=== PATIENT | male | born 1970 | race African-American/Black ===

== ENCOUNTER 2016-10-07 20:35 | Emergency (ER) | payer OTHER ==
[~2016-10-07] VITALS: Ht 182.9 cm; Wt 80.0 kg
[~2016-10-07 20:35] MED LIST: INDO25CA PO
[2016-10-07 20:39] VITALS: BP 138/83; PULSE 121; RESP 16; TEMP 98.3; O2SAT 98
[2016-10-07] MEDS ORDERED: CEPHALEXIN MONOHYDRATE 500 MG CAP PO ONE (20:45)
[2016-10-07] MEDS ORDERED: KETOROLAC TROMETHAMINE 60 MG/2 ML (IM) VIAL IM ONE (20:45)
[2016-10-07] MEDS ORDERED: SILVER SULFADIAZINE 1% CR 50 GM JAR TOPICAL ONE (20:45)
--- NOTE | 2016-10-07 20:53 | PD ---
Physical Exam Date Seen by Provider: Oct 07, 2016 Narrative Patient presents by [facility] with a burn to his left arm. Data Data Last Documented VS Vital Signs Date Time Temp Pulse Resp B/P Pulse Ox O2 Delivery O2 Flow Rate FiO2 10/07/16 20:42 122 16 98 Room Air 10/07/16 20:39 98.3 138/83 Orders Ketorolac Inj (Toradol Inj) (10/07/16 20:45) Cephalexin (Keflex) (10/07/16 20:45) Silver Sulfadia 1% Crm (50 Gm) (Silvaden (10/07/16 20:45) Wound Care (10/07/16 20:44) Splinting (10/07/16 ) MDM Supervised Visit with ERIC: Yes Narrative Course I, Dr. Lyons, have reviewed the advance practice practitioner's documentation and am in agreement, met with the patient face to face, made the diagnosis, and the medical decision making was done by me. *My assessment and Findings: The patient has some lacerations on the right hand but is able to move his right hand without difficulty. He has a strip of second -degree burn on the left arm near the elbow. It is not circumferential. Scripts Unable to Obtain Active Prescriptions or Reported Meds Keri Lyons MD Oct 07, 2016 20:53
--- NOTE | 2016-10-07 21:05 | PD ---
HPI Chief Complaint: Burn Time Seen by Provider: 20:48 Travel History International Travel<30 days: No Contact w/Intl Traveler<30days: No Traveled to known affect area: No History of Present Illness HPI 45-year-old Afro-[place]ipino male coming in via EMS status post burn to the left dorsal proximal forearm and elbow. Patient was frying some chicken, when the will spilled onto his left arm, the patient turned violently to the right and hit his right second and third knuckles on a glass table which shattered. Patient sustained a second-degree burn with loss of the superficial layers of the skin to below the pigmentation layer. Patient denies numbness, tingling, or other symptoms. Patient has full range of motion of the left arm and elbow at this time. Pain is described as a 4/10. Patient also has 2 abrasions to the right hand at the second and third knuckle with minimal bleeding noted. Patient states he is up-to-date on his tetanus as of one year ago, has no known drug allergies. He is a patient of the [place] [facility] Past Medical History Cardiovascular Problems: Yes (HTN) Diabetes: Yes Patient Takes Glucophage: Yes Diminished Hearing: No Tetanus Vaccination: < 5 Years Influenza Vaccination: No Past Surgical History Surgical History: No Previous Surgery Social History Alcohol Use: No Tobacco Use: Yes Substance Use: No Allergies-Medications (Allergen,Severity, Reaction): Coded Allergies: No Known Allergies (Unverified , 10/07/16) Reported Meds & Prescriptions Reported Meds & Active Scripts Active Active Prescriptions or Reported Medications Unobtainable Review of Systems Except as stated in HPI: all other systems reviewed are Neg General / Constitutional: No: Fever Eyes: No: Visual changes HENT: No: Headaches Cardiovascular: No: Chest Pain or Discomfort Respiratory: No: Shortness of Breath Gastrointestinal: No: Abdominal Pain Genitourinary: No: Dysuria Musculoskeletal: No: Pain Skin: No Rash Neurologic: No: Weakness Psychiatric: No: Depression Endocrine: No: Polydipsia Hematologic/Lymphatic: No: Easy Bruising Physical Exam Narrative GENERAL: Patient appears in mild distress SKIN: Warm and dry. Patient has a strip-like second-degree burn on the left dorsal forearm measuring 9 inches in length by approximately 3 inches and with with another inch surrounding of first-degree burn. Blisters have all been sloughed off. She also has some superficial abrasions to the right second and third knuckles with minimal bleeding noted. These do not appear to require sutures. HEAD: Atraumatic. Normocephalic. EYES: Pupils equal and round. No scleral icterus. No injection or drainage. ENT: No nasal bleeding or discharge. Mucous membranes pink and moist. NECK: Trachea midline. No JVD. CARDIOVASCULAR: Regular rate and rhythm. No murmurs gallops or rubs. RESPIRATORY: No accessory muscle use. Clear to auscultation. Breath sounds equal bilaterally. MUSCULOSKELETAL: Extremities without clubbing, cyanosis, or edema. No obvious deformities. Patient has full range of motion of all extremities without difficulty. Soakers Supervisor strength of the right hand is normal. No signs of foreign body. NEUROLOGICAL: Awake and alert. No obvious cranial nerve deficits. Motor grossly within normal limits. Five out of 5 muscle strength in the arms and legs. Normal speech. PSYCHIATRIC: Appropriate mood and affect; insight and judgment normal. Data Data Last Documented VS Vital Signs Date Time Temp Pulse Resp B/P Pulse Ox O2 Delivery O2 Flow Rate FiO2 10/07/16 20:42 122 16 98 Room Air 10/07/16 20:39 98.3 138/83 [facility] Medical Decision Making Medical Screen Exam Complete: Yes Emergency Medical Condition: Yes Differential Diagnosis Second-degree burn. First-degree burn. Abrasions. Narrative Course Patient is medically stable at time of exam. Patient is up-to-date on his tetanus. Patient is given 500 mg Keflex by mouth. Patient is given 60 mg Toradol IM. Bulky Burn dressing is applied to the left forearm/elbow with Silvadene ointment. Splint is applied to the left arm in position of comfort. Right hand abrasions are cleaned and dressed per nursing staff. Patient will be discharged home with a prescription for Keflex 500 mg 3 times a day 7 days. Patient is given ibuprofen 800 mg 3 times daily with food when necessary #30. Patient is given a prescription for Silvadene 2% ointment to be used for dressing changes. Patient is given tramadol 50 mg one every 6 hours when necessary #20. [facility]. Dressing should remain in place until that follow-up visit. Patient may return to emergency department if unable to get [facility] or has any worsening symptoms between now and then. Diagnosis Primary Impression: Second degree burn of arm Qualified Code: T22.20XA - Second degree burn of arm, initial encounter Additional Impression: Abrasion hand [facility] [place] [facility] Patient Instructions: Abrasion (ED), General Instructions, Second Degree Burn ( ED) Additional Instructions: Patient will be discharged home with a prescription for Keflex 500 mg 3 times a day 7 days. Patient is given ibuprofen 800 mg 3 times daily with food when necessary #30. Patient is given a prescription for Silvadene 2% ointment to be used for dressing changes. Patient is given tramadol 50 mg one every 6 hours when necessary #20. [facility] for [facility] check. Dressing should remain in place until that follow-up visit. Patient may return to emergency department if unable to [facility] or has any worsening symptoms between now and then. Med/Other Pt SpecificInfo: Prescription(s) given Scripts Unable to Obtain Active Prescriptions or Reported Meds Condition: Aldo Fregoso Oct 07, 2016 21:05
[2016-10-07] MEDS ORDERED: SILV1CRE20 TOPICAL (21:07)
[2016-10-07] MEDS ORDERED: CEPH-460 PO (21:07)
[2016-10-07] MEDS ORDERED: IBUP800T23 PO (21:07)
[2016-10-07] MEDS ORDERED: TRAM50TA PO ×2 (21:07→21:08)
== END 2016-10-07 22:37 | disposition home or self-care (01) ==
LOC: NEPC 20:35
DX: T22.212A Burn of second degree of left forearm, initial encounter (principal); T22.222A Burn of second degree of left elbow, initial encounter; S60.511A Abrasion of right hand, initial encounter; X10.2XXA Contact with fats and cooking oils, initial encounter; W25.XXXA Contact with sharp glass, initial encounter; Y93.G3 Activity, cooking and baking; Y93.89 Activity, other specified; Y92.9 Unspecified place or not applicable
CPT/HCPCS: 16020; 96372; 99283; J1885

== ENCOUNTER 2016-12-22 09:20 | Emergency (ER) | payer OTHER ==
[~2016-12-22] VITALS: Ht 188 cm; Wt 86.0 kg
[~2016-12-22 09:20] MED LIST changes: +CEPH-460 PO; +IBUP800T23 PO; -INDO25CA PO; +SILV1CRE20 TOPICAL; +TRAM50TA PO
[2016-12-22 09:32] VITALS: BP 142/96; PULSE 98; RESP 20; TEMP 98.1; O2SAT 95
--- NOTE | 2016-12-22 09:40 | PD ---
HPI Chief Complaint: Pain: Acute or Chronic Time Seen by Provider: 09:33 Travel History International Travel<30 days: No Contact w/Intl Traveler<30days: No Traveled to known affect area: No History of Present Illness HPI 46-year-old male came to the emergency room brought by EMS since his girlfriend called 911 because he was coughing up blood. Patient is significantly intoxicated and has a slur speech. Upon asking he is answering questions but really does not make a lot of sense. Keeps saying he wants to go home. Vital signs are otherwise stable. Currently is not a good over reliable historian. [facility] Past Medical History Narrative Medical List of his past medical, surgical, social and family history was reviewed from the nursing note. Cardiovascular Problems: Yes (HTN) Diabetes: Yes Diminished Hearing: No Social History Alcohol Use: No Tobacco Use: Yes Substance Use: No Allergies-Medications (Allergen,Severity, Reaction): Coded Allergies: No Known Allergies (Unverified , 12/22/16) Comments List of his allergies reviewed from the nursing note. Reported Meds & Prescriptions Reported Meds & Active Scripts Active Reported Lisinopril 40 Mg Tab 40 Mg PO DAILY Allopurinol 300 Mg Tab 300 Mg PO DAILY Zorvolex (Diclofenac) 35 Mg Cap 75 Mg PO BID Gabapentin 300 Mg Cap 300 Mg PO TID Narrative Medication List of his medications reviewed from the nursing note. Review of Systems Except as stated in HPI: all other systems reviewed are Neg Physical Exam Narrative GENERAL: Intoxicated, slurred speech SKIN: Focused skin assessment warm/dry. HEAD: Atraumatic. Normocephalic. EYES: Pupils equal and round. No scleral icterus. No injection or drainage. ENT: No nasal bleeding or discharge. Dry mucous membrane and coated tongue. NECK: Trachea midline. No JVD. CARDIOVASCULAR: Regular rate and rhythm. No murmur appreciated. RESPIRATORY: No accessory muscle use. Clear to auscultation. Breath sounds equal bilaterally. GASTROINTESTINAL: Abdomen soft, non-tender, nondistended. Hepatic and splenic margins not palpable. MUSCULOSKELETAL: No obvious deformities. No clubbing. No cyanosis. No edema. NEUROLOGICAL: Intoxicated. No obvious cranial nerve deficits. Motor grossly within normal limits. Slurred speech. PSYCHIATRIC: Appropriate mood and affect; insight and judgment normal. Data Data Last Documented VS Vital Signs Date Time Temp Pulse Resp B/P Pulse Ox O2 Delivery O2 Flow Rate FiO2 12/22/16 09:46 18 93 Nasal Cannula 2 12/22/16 09:36 98 12/22/16 09:32 98.1 142/96 Orders Complete Blood Count With Diff (12/22/16 09:43) Comprehensive Metabolic Panel (12/22/16 09:43) Lipase (12/22/16 09:43) Iv Access Insert/Monitor (12/22/16 09:43) Ecg Monitoring (12/22/16 09:43) Oximetry (12/22/16 09:43) Sodium Chlor 0.9% 1000 Ml Inj (Ns 1000 M (12/22/16 09:43) Sodium Chloride 0.9% Flush (Ns Flush) (12/22/16 09:45) Thiamine Inj (Thiamine Inj) (12/22/16 09:45) Alcohol (Ethanol) (12/22/16 09:43) Chest, Single Ap (12/22/16 ) Labs Laboratory Tests Test 12/22/16 10:05 White Blood Count 5.7 TH/MM3 Red Blood Count 4.57 MIL/MM3 Hemoglobin 14.0 GM/DL Hematocrit 41.0 % Mean Corpuscular Volume 89.8 FL Mean Corpuscular Hemoglobin 30.6 PG Mean Corpuscular Hemoglobin 34.1 % Concent Red Cell Distribution Width 16.0 % Platelet Count 277 TH/MM3 Mean Platelet Volume 8.5 FL Neutrophils (%) (Auto) 52.4 % Lymphocytes (%) (Auto) 38.5 % Monocytes (%) (Auto) 7.4 % Eosinophils (%) (Auto) 0.7 % Basophils (%) (Auto) 1.0 % Neutrophils # (Auto) 3.0 TH/MM3 Lymphocytes # (Auto) 2.2 TH/MM3 Monocytes # (Auto) 0.4 TH/MM3 Eosinophils # (Auto) 0.0 TH/MM3 Basophils # (Auto) 0.1 TH/MM3 CBC Comment DIFF FINAL Differential Comment Sodium Level 137 MEQ/L Potassium Level 4.1 MEQ/L Chloride Level 100 MEQ/L Carbon Dioxide Level 25.6 MEQ/L Anion Gap 11 MEQ/L Blood Urea Nitrogen 10 MG/DL Creatinine 0.90 MG/DL Estimat Glomerular Filtration 111 ML/MIN Rate Random Glucose 94 MG/DL Calcium Level 8.8 MG/DL Total Bilirubin 1.0 MG/DL Aspartate Amino Transf 130 U/L (AST/SGOT) Alanine Aminotransferase 73 U/L (ALT/SGPT) Alkaline Phosphatase 146 U/L Total Protein 8.5 GM/DL Albumin 3.8 GM/DL Lipase 107 U/L Ethyl Alcohol Level 268 MG/DL [facility] Medical Decision Making Medical Screen Exam Complete: Yes Emergency Medical Condition: Yes Medical Record Reviewed: Yes Differential Diagnosis Acute alcohol intoxication, pneumonia Narrative Course 10:48 AM Chest x-ray was within normal limit. He has a friend/family in the room currently. If all the test is also negative I'll discharge him home with the acquaintance in the room. Patient was given 1 L of IV fluid bolus. Blood test results of back and within acceptable limits. His alcohol level is 268. Procedures EKG Prior to Arrival: No Diagnosis Primary Impression: Acute alcohol intoxication Qualified Code: F10.129 - Acute alcohol intoxication, with unspecified complication Referrals: Primary Care Physician Additional Instructions: Please drink alcohol in moderation. Follow up with the primary care. Med/Other Pt SpecificInfo: No Change to Meds Disposition: 01 DISCHARGE HOME Condition: Stable Chris Low MD Dec 22, 2016 09:40
[2016-12-22] MEDS ORDERED: SODIUM CHLOR 0.9% 1000 ML INJ 1,000 ML IV SCH (09:43)
[2016-12-22] MEDS ORDERED: ALLO300T2 PO (09:45)
[2016-12-22] MEDS ORDERED: DICL1CAP4 PO (09:45)
[2016-12-22] MEDS ORDERED: GABA300C5 PO (09:45)
[2016-12-22] MEDS ORDERED: SODIUM CHLORIDE 0.9% FLUSH 10 ML FLUSH IV FLUSH PRN (09:45)
[2016-12-22] MEDS ORDERED: THIAMINE HCL 200 MG/2 ML VIAL IM ONE (09:45)
[2016-12-22] MEDS ORDERED: LISI40TA PO (09:45)
[2016-12-22 09:46] VITALS: RESP 18; O2SAT 93
--- NOTE | 2016-12-22 10:00 | RADRPT ---
EXAM DATE/TIME: 12/22/2016 09:45 [place] COMPARISON: No previous studies available for comparison. INDICATIONS : Patient states shortness of breath. MEDICAL HISTORY : Hypertension. Diabetes mellitus type II. Gout SURGICAL HISTORY : None. ENCOUNTER: Initial ACUITY: 1 day PAIN SCORE: 0/10 LOCATION: Bilateral chest FINDINGS: A single view of the chest demonstrates the lungs to be symmetrically aerated without evidence of mas s, infiltrate or effusion. The cardiomediastinal contours are unremarkable. Osseous structures are intact. CONCLUSION: No acute disease. Jl Nava MD on December 22, 2016 at 9:58 Board Certified Radiologist. This report was verified electronically.
[2016-12-22 10:17] LABS: BASOPHIL # 0.1 TH/MM3 (0-0.2); EOSINOPHIL % 0.7 % (0.0-4.0); HEMO FLAGS DIFF FINAL; LYMPH % 38.5 % (9.0-44.0); LYMPHOCYTE # 2.2 TH/MM3 (1.0-4.8); MEAN CELL VOLUME 89.8 FL (80.0-100.0); MEAN CORPUSCULAR HEMOGLOBIN 30.6 PG (27.0-34.0); MEAN CORPUSCULAR HGB CONC 34.1 % (32.0-36.0); MONO % 7.4 % (0.0-8.0); NEUT % 52.4 % (16.0-70.0); PLATELET COUNT 277 TH/MM3 (150-450); RED BLOOD COUNT 4.57 MIL/MM3 (4.50-5.90); WHITE BLOOD COUNT 5.7 TH/MM3 (4.0-11.0)
[2016-12-22 10:32] LABS: ANION GAP 11 MEQ/L (5-15)
[2016-12-22 10:38] LABS: ALKALINE PHOSPHATASE 146 U/L (45-117); ALT (GPT) 73 U/L (12-78); AST (GOT) 130 U/L (15-37); BICARBONATE 25.6 MEQ/L (21.0-32.0); BLOOD UREA NITROGEN 10 MG/DL (7-18); CHLORIDE 100 MEQ/L (98-107); GLOMERULAR FILTRATION RATE 111 ML/MIN (>89); POTASSIUM 4.1 MEQ/L (3.5-5.1); SODIUM (NA) 137 MEQ/L (136-145)
== END 2016-12-22 12:40 | disposition home or self-care (01) ==
LOC: NEPC 09:20
DX: F10.129 Alcohol abuse with intoxication, unspecified (principal); R06.02 Shortness of breath; I10 Essential (primary) hypertension; E11.9 Type 2 diabetes mellitus without complications; M10.9 Gout, unspecified; Z72.0 Tobacco use; Y90.8 Blood alcohol level of 240 mg/100 ml or more
CPT/HCPCS: 71010; 80053; 80307; 83690; 85025; 96360; 96372; 99284; J3411; J7030

== ENCOUNTER 2017-04-16 22:19 | Emergency (ER) | payer OTHER ==
[~2017-04-16] VITALS: Ht 182.9 cm; Wt 90.0 kg
[~2017-04-16 22:19] MED LIST changes: +ALLO300T2 PO; -CEPH-460 PO; +DICL1CAP4 PO; +GABA300C5 PO; -IBUP800T23 PO; +LISI40TA PO; -SILV1CRE20 TOPICAL; -TRAM50TA PO
[2017-04-16 22:29] VITALS: BP 176/93; PULSE 102; RESP 18; TEMP 98.2; O2SAT 97
[2017-04-16] MEDS ORDERED: LORazepam 2 MG/ML VIAL IM ONE (23:45)
[2017-04-16] MEDS ORDERED: HALOPERIDOL LACTATE 5 MG/ML AMP IM ONE (23:45)
--- NOTE | 2017-04-17 00:11 | PD ---
HPI Chief Complaint: Alcohol/Drug Intoxication Time Seen by Provider: 22:56 Travel History International Travel<30 days: No Contact w/Intl Traveler<30days: No Traveled to known affect area: No History of Present Illness HPI The patient was found intoxicated with alcohol and a supermarket. He is 46 years old. He was brought to the ER for evaluation due to alcohol intoxication. In the ER he has no medical complaint. History is limited due to intoxicated state. He does report drinking alcohol however denies drug abuse. He reports that he was in the [place] war. [facility] Past Medical History Depression: Yes Cardiovascular Problems: Yes (HTN) Diabetes: Yes Patient Takes Glucophage: No Diminished Hearing: No Gout: Yes Musculoskeletal: Yes (CHRONIC PAIN) Tetanus Vaccination: < 5 Years Influenza Vaccination: No Social History Alcohol Use: Yes (7 BEERS PER DAY AT LEAST) Tobacco Use: Yes (1/2 PPD) Substance Use: No Allergies-Medications (Allergen,Severity, Reaction): Coded Allergies: No Known Allergies (Unverified , 04/16/17) Reported Meds & Prescriptions Reported Meds & Active Scripts Active No Active Prescriptions or Reported Medications Review of Systems Except as stated in HPI: all other systems reviewed are Neg Physical Exam Narrative GENERAL: 46 yo M etoh on breath, wnwd, intoxicated SKIN: Warm and dry. HEAD: Atraumatic. Normocephalic. EYES: Pupils equal and round. No scleral icterus. No injection or drainage. ENT: No nasal bleeding or discharge. Mucous membranes pink and moist. NECK: Trachea midline. No JVD. CARDIOVASCULAR: Regular rate and rhythm. RESPIRATORY: No accessory muscle use. Clear to auscultation. Breath sounds equal bilaterally. GASTROINTESTINAL: Abdomen soft, non-tender, nondistended. Hepatic and splenic margins not palpable. MUSCULOSKELETAL: Extremities without clubbing, cyanosis, or edema. No obvious deformities. NEUROLOGICAL: CN III-XII normal. Normal motor function. Ambulatory. Speech is slurred c/w etoh intoxication. PSYCHIATRIC: Alcohol intoxication affect. Data Data Last Documented VS Vital Signs Date Time Temp Pulse Resp B/P Pulse Ox O2 Delivery O2 Flow Rate FiO2 04/17/17 00:20 88 16 171/66 97 Room Air 04/16/17 22:29 98.2 VS reviewed Orders Complete Blood Count With Diff (04/16/17 23:37) Comprehensive Metabolic Panel (04/16/17 23:37) Oximetry (04/16/17 23:37) Iv Access Insert/Monitor (04/16/17 23:37) Ecg Monitoring (04/16/17 23:37) Psych Screen (04/16/17 23:37) Haloperidol Inj (Haldol Inj) (04/16/17 23:45) Lorazepam Inj (Ativan Inj) (04/16/17 23:45) Restraints Violent (04/16/17 23:37) Drug Screen, Random Urine (04/16/17 23:37) Alcohol (Ethanol) (04/16/17 23:37) Labs Laboratory Tests Test 04/16/17 04/17/17 23:44 00:10 Urine Opiates Screen NEG Urine Barbiturates Screen NEG Urine Amphetamines Screen NEG Urine Benzodiazepines Screen NEG Urine Cocaine Screen NEG Urine Cannabinoids Screen NEG White Blood Count 7.1 TH/MM3 Red Blood Count 4.36 MIL/MM3 Hemoglobin 14.2 GM/DL Hematocrit 39.9 % Mean Corpuscular Volume 91.7 FL Mean Corpuscular Hemoglobin 32.5 PG Mean Corpuscular Hemoglobin 35.5 % Concent Red Cell Distribution Width 13.1 % Platelet Count 230 TH/MM3 Mean Platelet Volume 9.4 FL Neutrophils (%) (Auto) 46.2 % Lymphocytes (%) (Auto) 47.4 % Monocytes (%) (Auto) 3.7 % Eosinophils (%) (Auto) 2.0 % Basophils (%) (Auto) 0.7 % Neutrophils # (Auto) 3.3 TH/MM3 Lymphocytes # (Auto) 3.4 TH/MM3 Monocytes # (Auto) 0.3 TH/MM3 Eosinophils # (Auto) 0.1 TH/MM3 Basophils # (Auto) 0.1 TH/MM3 CBC Comment DIFF FINAL Differential Comment Sodium Level 140 MEQ/L Potassium Level 3.4 MEQ/L Chloride Level 105 MEQ/L Carbon Dioxide Level 24.5 MEQ/L Anion Gap 11 MEQ/L Blood Urea Nitrogen 10 MG/DL Creatinine 0.95 MG/DL Estimat Glomerular Filtration 104 ML/MIN Rate Random Glucose 128 MG/DL Calcium Level 8.6 MG/DL Total Bilirubin 0.6 MG/DL Aspartate Amino Transf 37 U/L (AST/SGOT) Alanine Aminotransferase 34 U/L (ALT/SGPT) Alkaline Phosphatase 101 U/L Total Protein 8.5 GM/DL Albumin 4.1 GM/DL Ethyl Alcohol Level 301 MG/DL [facility] Medical Decision Making Medical Screen Exam Complete: Yes Emergency Medical Condition: Yes Medical Record Reviewed: Yes Differential Diagnosis Alcohol intoxication, polysubstance abuse, alcoholism Narrative Course CBC & BMP Diagram 04/17/17 00:10 LFTs normal U Toxicology navarrete-negative EtOH 301 Unfortunately after the patient had spent about 45 minutes. He became combative and shouting. After multiple attempts to redirect him to his room he remained uncooperative. At one point he accidentally pushed the undersigned and sedation was required at that point. A Elise act was completed thereafter. Diagnosis Primary Impression: Acute alcohol intoxication Qualified Code: F10.920 - Acute alcohol intoxication, uncomplicated Additional Impression: Combative behavior Admitting Information Admitting Physician Requests: Observation Scripts No Active Prescriptions or Reported Meds Marquis Cortez MD Apr 17, 2017 00:11
[2017-04-17 00:20] VITALS: BP 171/66; PULSE 88; RESP 16; O2SAT 97
[2017-04-17 00:22] LABS: AMPHETAMINE, URINE NEG (NEG); BARBITURATES, URINE NEG (NEG); COCAINE, URINE NEG (NEG)
[2017-04-17 00:23] LABS: AUTOMATED NEUTROPHIL # 3.3 TH/MM3 (1.8-7.7); BASOPHIL # 0.1 TH/MM3 (0-0.2); BASOPHIL % 0.7 % (0.0-2.0); EOSINOPHIL # 0.1 TH/MM3 (0-0.4); HEMATOCRIT 39.9 % (39.0-51.0); HEMO FLAGS DIFF FINAL; LYMPH % 47.4 % (9.0-44.0); LYMPHOCYTE # 3.4 TH/MM3 (1.0-4.8); MEAN CELL VOLUME 91.7 FL (80.0-100.0); MEAN CORPUSCULAR HEMOGLOBIN 32.5 PG (27.0-34.0); MEAN CORPUSCULAR HGB CONC 35.5 % (32.0-36.0); MONO % 3.7 % (0.0-8.0); NEUT % 46.2 % (16.0-70.0); PLATELET COUNT 230 TH/MM3 (150-450); RED BLOOD COUNT 4.36 MIL/MM3 (4.50-5.90); RED CELL DISTRIBUTION WIDTH 13.1 % (11.6-17.2); WHITE BLOOD COUNT 7.1 TH/MM3 (4.0-11.0)
[2017-04-17 00:48] LABS: ALT (GPT) 34 U/L (12-78); ANION GAP 11 MEQ/L (5-15); AST (GOT) 37 U/L (15-37); BICARBONATE 24.5 MEQ/L (21.0-32.0); BLOOD UREA NITROGEN 10 MG/DL (7-18); CHLORIDE 105 MEQ/L (98-107); GLOMERULAR FILTRATION RATE 104 ML/MIN (>89); POTASSIUM 3.4 MEQ/L (3.5-5.1); SODIUM (NA) 140 MEQ/L (136-145)
[2017-04-17 00:51] LABS: ALKALINE PHOSPHATASE 101 U/L (45-117); TOTAL BILIRUBIN ADULT 0.6 MG/DL (0.2-1.0)
[2017-04-17 04:03] VITALS: BP 164/72
[2017-04-17] MEDS ORDERED: FLUMAZENIL 0.5 MG/5 ML VIAL IV PUSH PRN (04:15)
[2017-04-17] MEDS ORDERED: LORazepam 2 MG TAB PO PRN (04:15)
[2017-04-17] MEDS ORDERED: LORazepam 2 MG/ML VIAL IV PUSH PRN ×4 (04:15)
[2017-04-17] MEDS ORDERED: LORazepam 1 MG TAB PO PRN (04:15)
[2017-04-17 04:28] VITALS: BP 139/89; PULSE 83; RESP 16; O2SAT 97
[2017-04-17 04:52] VITALS: BP 139/89; PULSE 83; RESP 16; O2SAT 97
[2017-04-17 06:13] VITALS: BP 140/84; PULSE 96; RESP 18; O2SAT 97
--- NOTE | 2017-04-17 08:27 | PD ---
History of Present Illness Chief Complaint: Alcohol/Drug Intoxication Time Seen by Provider: 08:00 Travel History International Travel<30 Days: No Contact w/Intl Traveler<30days: No Known affected area: No Legal Status Legal Status: Involuntary Elise Act Signed By: DR SATHYA Elise Act Comment: INVOLUNTARY INITIATED BY DR LISA REECE History of Present Illness: History of Present Illness HPI The patient is a 46 year old male with history of PTSD that was found intoxicated and was brought to the ER for evaluation due to alcohol intoxication. While in the ED he was agitated and pushed an ED provider therefore he was placed under a BA. The patient had a BAL: of 301 when he arrived to the Ed. He was monitored in J pod and was allowed to sober up clinically. While in J pod he presented no behavioral concerns. EMR is reviewed . One previous visit to ED with alcohol related complaints. Patient seen with NIKITA Waller. He is clinically sober. He is alert and oriented. Speech is of low tone and difficult to understand at times but it is goal directed. He has no recollection of events last night. He denies that he drinks every day and states " I am under some stress". He reports that his is expecting twins in 2 months and that his son is short on his tuition to [employer] He states " I would not hurt anyone or myself". " I can't let my kids down". In terms of psychiatric treatment he reports that he [facility] as well as attending support groups there as well. There is no psychosis and no amanda. Not significantly depressed. In terms of alcohol use he denies daily use. PFSH Past Medical History Depression: Yes Cardiovascular Problems: Yes (HTN) Diabetes: Yes Patient Takes Glucophage: No Diminished Hearing: No Gout: Yes Musculoskeletal: Yes (CHRONIC PAIN) Tetanus Vaccination: < 5 Years Influenza Vaccination: No Psychiatric History Psychiatric History Hx Psychiatric Treatment: Rece[facility] out[facility]. No hx of inpatient tretametn. medication compliant History of Inpatient Treatment: No Guns or firearms in home: No Social History x 16 years. 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 Hx Alcohol Use: Yes (7 BEERS PER DAY AT LEAST) Hx Tobacco Use: Yes (1/2 PPD) Hx Substance Use: Yes (7 BEERS PER DAY ) Substance Use Type: Alcohol, Nicotine/Cigarettes Other Substances Used: 1/2 PPD CIGARETTES Hx of Substance Use Treatment: No Family Psychiatric History negative Allergies-Medications (Allergen,Severity, Reaction): Coded Allergies: No Known Allergies (Unverified , 04/16/17) Reported Meds & Prescriptions Reported Meds & Active Scripts Active No Active Prescriptions or Reported Medications Review of Systems Constitutional: DENIES: Diaphoretic episodes, Fatigue, Fever, Weight gain, Weight loss, Chills, Dizziness, Change in appetite, Night Sweats Endocrine: DENIES: Heat/cold intolerance, Polydipsia, Polyuria, Polyphagia Eyes: DENIES: Blurred vision, Diplopia, Eye inflammation, Eye pain, Vision loss , Photosensitivity, Double Vision Ears, nose, mouth, throat: DENIES: Tinnitus, Hearing loss, Vertigo, Nasal discharge, Oral lesions, Throat pain, Hoarseness, Ear Pain, Running Nose, Epistaxis, Sinus Pain, Toothache, Odynophagia Respiratory: DENIES: Apneas, Cough, Snoring, Wheezing, Hemoptysis, Sputum production, Shortness of breath Cardiovascular: DENIES: Chest pain, Palpitations, Syncope, Dyspnea on Exertion , PND, Lower Extremity Edema, Orthopnea, Claudication Gastrointestinal: DENIES: Abdominal pain, Black stools, Bloody stools, Constipation, Diarrhea, Nausea, Vomiting, Difficulty Swallowing, Anorexia Musculoskeletal: COMPLAINS OF: Joint pain, Stiffness, Back pain Integumentary: DENIES: Abnormal pigmentation, Nail changes, Pruritus, Rash Hematologic/lymphatic: DENIES: Bruising, Lymphadenopathy Immunologic/allergic: DENIES: Eczema, Urticaria Neurologic: DENIES: Abnormal gait, Headache, Localized weakness, Paresthesias, Seizures, Speech Problems, Tremor, Poor Balance Psychiatric: DENIES: Anxiety, Confusion, Mood changes, Depression, Hallucinations, Agitation, Suicidal Ideation, Homicidal Ideation, Delusions Exam Alert: Yes [place]: Person (ox4) Mood: Calm Affect: Appropriate Speech: Clear, Logical Eye Contact: Normal Memory Intact: Comment (no impairment) Hallucinations: Other (Negative) Delusions: No Suicidal: Ideation (deneis any) Homicidal: Ideation (deneis any) Insight/Judgement Fair . Not impaired. MDM Medical Decision Making Medical Record Reviewed: Yes Assessment/Plan The patient is a 46 year old male with history of PTSD that was found intoxicated and was brought to the ER for evaluation due to alcohol intoxication. While in the ED he was agitated and pushed an ED provider therefore he was placed under a BA. The patient had a BAL: of 301 when he arrived to the Ed. He was allowed to sober up in a secure environment. At this time he is clinically sober and he denies any suicidal or homicidal ideation, intent or plan. He is future oriented with adequate protective f actors. he is cognitively intact. Does not meet criteria for BA. I have counseled regarding use of ETOH. Recommend abstinence. Follow up with outpatient provider. . Orders Complete Blood Count With Diff (04/16/17 23:37) Comprehensive Metabolic Panel (04/16/17 23:37) Oximetry (04/16/17 23:37) Iv Access Insert/Monitor (04/16/17 23:37) Ecg Monitoring (04/16/17 23:37) Psych Screen (04/16/17 23:37) Haloperidol Inj (Haldol Inj) (04/16/17 23:45) Lorazepam Inj (Ativan Inj) (04/16/17 23:45) Restraints Violent (04/16/17 23:37) Drug Screen, Random Urine (04/16/17 23:37) Alcohol (Ethanol) (04/16/17 23:37) Alcohol Withdrawal Asmt-Ciwa ONCE (04/17/17 04:02) Flumazenil Inj (Romazicon Inj) (04/17/17 04:15) Lorazepam (Ativan) (04/17/17 04:15) Lorazepam Inj (Ativan Inj) (04/17/17 04:15) Lorazepam (Ativan) (04/17/17 04:15) Lorazepam Inj (Ativan Inj) (04/17/17 04:15) Lorazepam Inj (Ativan Inj) (04/17/17 04:15) Lorazepam Inj (Ativan Inj) (04/17/17 04:15) Diet Regular Basic (04/17/17 Breakfast) Results Vital Signs Date Time Temp Pulse Resp B/P Pulse Ox O2 Delivery O2 Flow Rate FiO2 04/17/17 06:13 96 18 140/84 97 Room Air 04/17/17 04:52 83 16 139/89 97 Room Air 04/17/17 04:28 83 16 139/89 97 Room Air 04/17/17 04:03 78 16 164/72 97 04/17/17 00:20 88 16 171/66 97 Room Air 04/17/17 00:20 16 97 Room Air 04/16/17 22:34 16 04/16/17 22:34 16 97 Room Air 04/16/17 22:29 98.2 102 18 176/93 97 Laboratory Tests Test 04/16/17 04/17/17 23:44 00:10 Urine Opiates Screen NEG Urine Barbiturates Screen NEG Urine Amphetamines Screen NEG Urine Benzodiazepines Screen NEG Urine Cocaine Screen NEG Urine Cannabinoids Screen NEG White Blood Count 7.1 Red Blood Count 4.36 Hemoglobin 14.2 Hematocrit 39.9 Mean Corpuscular Volume 91.7 Mean Corpuscular Hemoglobin 32.5 Mean Corpuscular Hemoglobin 35.5 Concent Red Cell Distribution Width 13.1 Platelet Count 230 Mean Platelet Volume 9.4 Neutrophils (%) (Auto) 46.2 Lymphocytes (%) (Auto) 47.4 Monocytes (%) (Auto) 3.7 Eosinophils (%) (Auto) 2.0 Basophils (%) (Auto) 0.7 Neutrophils # (Auto) 3.3 Lymphocytes # (Auto) 3.4 Monocytes # (Auto) 0.3 Eosinophils # (Auto) 0.1 Basophils # (Auto) 0.1 CBC Comment DIFF FINAL Differential Comment Sodium Level 140 Potassium Level 3.4 Chloride Level 105 Carbon Dioxide Level 24.5 Anion Gap 11 Blood Urea Nitrogen 10 Creatinine 0.95 Estimat Glomerular Filtration 104 Rate Random Glucose 128 Calcium Level 8.6 Total Bilirubin 0.6 Aspartate Amino Transf 37 (AST/SGOT) Alanine Aminotransferase 34 (ALT/SGPT) Alkaline Phosphatase 101 Total Protein 8.5 Albumin 4.1 Ethyl Alcohol Level 301 Diagnosis Primary Impression: Acute alcohol intoxication Additional Impression: Combative behavior Psychiatrically Cleared: Yes Med/ Other Pt Specific Info: No Change to Meds Prescriptions No Active Prescriptions or Reported Meds Disposition: 01 DISCHARGE HOME Condition: Stable Problem Qualifiers Primary Impression: Acute alcohol intoxication Qualified Code: F10.920 - Acute alcohol intoxication, uncomplicated Antonio,Abbi Dianelys Machado FE[employer] CATCHER Apr 17, 2017 08:26
[2017-04-17 08:37] VITALS: BP 140/84; PULSE 96; RESP 18; O2SAT 97
== END 2017-04-17 11:01 | disposition home or self-care (01) ==
LOC: NEPD 22:19 → NEPJ 04-17 11:01
DX: F10.920 Alcohol use, unspecified with intoxication, uncomplicated (principal); R45.1 Restlessness and agitation; I10 Essential (primary) hypertension; E11.9 Type 2 diabetes mellitus without complications; F17.200 Nicotine dependence, unspecified, uncomplicated; Z86.59 Personal history of other mental and behavioral disorders; Z86.79 Personal history of other diseases of the circulatory system; Z87.39 Personal history of other diseases of the musculoskeletal system and connective tissue
CPT/HCPCS: 80053; 80307; 85025; 96372; 99284; J1630; J2060